=== PATIENT | female | born 2000 | race Two or more races ===

== ENCOUNTER 2022-03-27 01:18 | Emergency (ER) | payer SELFPAY ==
[~2022-03-27] VITALS: Ht 154.9 cm; Wt 91.0 kg
[2022-03-27 01:34] VITALS: BP 136/73
== END 2022-03-27 07:26 | disposition left against medical advice (07) ==
LOC: ER 01:18
DX: S71.151A Open bite, right thigh, initial encounter (principal); Z53.21 Procedure and treatment not carried out due to patient leaving prior to being seen by health care provider; W54.0XXA Bitten by dog, initial encounter; Y93.89 Activity, other specified; Y92.89 Other specified places as the place of occurrence of the external cause; Y99.8 Other external cause status

== ENCOUNTER 2022-09-12 16:24 | Emergency (ER) | payer MEDICAID ==
[~2022-09-12] VITALS: Ht 157.5 cm; Wt 97.0 kg
[2022-09-12 20:44] VITALS: BP 122/65
== END 2022-09-12 20:49 | disposition home or self-care (01) ==
LOC: ER 16:24
DX: I10 Essential (primary) hypertension (principal)